=== PATIENT | male | born 1960 | race Caucasian/White ===

== ENCOUNTER 2025-08-20 07:37 | Emergency (ER) | payer SELFPAY ==
[2025-08-20 07:41] VITALS: BP 151/91
[2025-08-20] MEDS: PERCOCET 5/325 1 TABLET PO ×2 (07:49→10:05)
[2025-08-20] MEDS: TORADOL 30 MG IM (07:50)
--- NOTE | 2025-08-20 09:37 | ED.GENMED ---
History of Present Illness
General
Chief Complaint: Musculo-Skeletal Complaint
Source: patient
Exam Limitations: none
Time Seen by Provider: 08/20/25 07:51
Nursing documentation reviewed up to this point in time: agreed with
History of Present Illness
History of Present Illness:
65-year-old male past medical history of hypertension hyperlipidemia presenting to the emergency department after falling off a razor scooter at work falling directly onto his bent left forearm. Immediately felt pain to the area. Denies numbness
weakness denies any head trauma no neck pain no numbness or weakness.
Review of Systems
Review of Systems
Allergies reviewed?: Yes
All Other Systems: ROS reviewed and negative except as documented in HPI and ROS
Phy Exam
Physical Exam
Physical Exam:
GENERAL: Alert , in no apparent distress
EYE: pupils equal and reactive
NECK: Supple, no significant adenopathy.
ENT: o/p clr, mmm.
CARDIAC: Regular rate and rhythm .
LUNGS: Clear breath sounds bilaterally, no acute respiratory distress, no wheezes/rales/rhonchi
ABDOMEN: Soft, without focal tenderness, no r/g, no cvat
NEUROLOGICAL: Alert and oriented, no focal neuro deficits
SKIN: Warm and dry, skin intact.
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 No tenderness throughout the shoulder girdle
PSYCH: Normal and appropriate interaction.
Course
Orders/Labs/Results
Orders:
Orders
08/20/25 07:46
Ketorolac [Toradol] 30 mg IM NOW STA
Oxycodone/Acetaminophen [Percocet 5/325] 1 tablet PO NOW STA
08/20/25 07:53
Forearm, Left 2 View [CR Forearm - Left 2 View] Urgent
Comment:
Reason For Exam: pain injury
08/20/25 09:45
Ketorolac [Toradol] 15 mg IM NOW STA
Oxycodone/Acetaminophen [Percocet 5/325] 1 tablet PO NOW STA
Vital Signs
Initial and Last Documented VS:
Initial Vital Signs
Temp Pulse Resp BP Pulse Ox
98.0 F 63 16 151/91 99
08/20/25 07:41 08/20/25 07:41 08/20/25 07:41 08/20/25 07:41 08/20/25 07:41
Last Documented Vital Signs
Temp Pulse Resp BP Pulse Ox
98.0 F 63 16 151/91 99
08/20/25 07:41 08/20/25 07:41 08/20/25 07:41 08/20/25 07:41 08/20/25 09:43
Procedures
Splinting/Sling Placement
Left Arm:
Procedure completed by: Myself
Pre-splint extermity exam: neurovascular intact
Type of splint: posterior long arm
Splint material: fiberglass
Splint checked by provider?: Yes
Type of sling: sling fitted
Normal distal neurovascular exam?: Yes
MDM/Problems Addressed
MDM/Problems Addressed:
65-year-old male presenting to the emergency department today with concerns of left forearm pain after falling off a scooter. Patient found have a proximal ulnar fracture. Case discussed with orthopedics recommending splinting and close outpatient
follow-up.
*Pulse Oximetry
SaO2: 99
Oxygen Mode of Delivery: Room air
Patient hypoxic: no (99)
*Critical Care Note
Total Time (30-74mins, 75-104mins- exclusive of procedures): Not Applicable
ED Attending Note
-
Portions of this chart may have been created with voice recognition software.� Occasional wrong word or��sound alike� substitutions may have occurred due to the inherent limitations of voice recognition software.
Discharge Plan
Departure
Patient Disposition: Home (Routine Discharge)
Date of Disposition: 08/20/25
Time of Disposition: 11:40
Patient with high blood pressure during this ER visit?: No
Condition: Good
Covid-19: Not Applicable
Discharge Problem:
Fracture of proximal end of left ulna
Instructions: Elbow Fracture, Adult ED
Prescriptions:
New
oxycodone-acetaminophen [Percocet] 5-325 mg tablet
1 tab PO Q8H PRN (Reason: Pain) Qty: 7 0RF
Referrals:
Van Ayala DO [Family Provider, Family Practice]
Yevgeniy Corral MD [Active, Orthopedics] - Follow up in 5-7 days
Activity Restrictions/Additional Instructions:
You came to the emergency department today with concerns of an injury to your left forearm you are found to have a proximal ulnar fracture. Please wear the splint and follow-up closely with orthopedics. Return for any worsening, new or concerning
symptoms.
Interventions
Interventions:
*Risk Screen - Suicide Last Done: 08/20/25 07:41
*Neglect/Abuse Screening Last Done: 08/20/25 07:41
*ED- Fall Risk Assessment Last Done: 08/20/25 07:41
ED-Musculoskeletal Assessment Last Done: 08/20/25 07:41
Discharge Date and Time
Print Language: BHUTANESE
== END 2025-08-20 11:45 | disposition home or self-care (01) ==
LOC: EMR 07:37
PROVIDERS: EMERGENCY PHYSICIAN Emergency Medicine; FAMILY PHYSICIAN Family Medicine Sports Medicine
DX: S52.092A Other fracture of upper end of left ulna, initial encounter for closed fracture (principal); S52.122A Displaced fracture of head of left radius, initial encounter for closed fracture; V00.841A Fall from standing electric scooter, initial encounter; Y92.89 Other specified places as the place of occurrence of the external cause; Y99.0 Civilian activity done for income or pay; I10 Essential (primary) hypertension; E78.5 Hyperlipidemia, unspecified
CPT/HCPCS: 29105; 96372; 99284; 73090

== ENCOUNTER → 2025-08-21 15:12 | Outpatient (REF) | payer OTHER, SELFPAY ==
[2025-08-21 16:44] LABS: Hematocrit 45.8 % (39.0-52.0); Hemoglobin 16.2 g/dL (13.0-18.0); Mean Corp Hgb Conc. 35.4 g/dL (33.0-37.0); Mean Corpuscular Volume 99.1 fL (80.0-94.0); Nucleated Red Blood Cells % 0 % (-); Platelet Count 190 10^3/uL (130-400); Red Cell Dist. Width 11.8 % (11.5-14.5)
[2025-08-21 17:06] LABS: Blood Urea Nitrogen 10 mg/dl (9-20); Calcium 9.3 mg/dl (8.4-10.2); Carbon Dioxide 26 mmol/L (22-30); Chloride 99 mmol/L (98-107); Glucose 94 mg/dl (70-99); Potassium 4.3 mmol/L (3.5-5.1); Sodium 133 mmol/L (135-145); eGFR > 60.00
== END ==
LOC: REG 15:12
PROVIDERS: ATTENDING PHYSICIAN Orthopaedic Surgery
DX: Z01.818 Encounter for other preprocedural examination (principal)
CPT/HCPCS: 36415; 80048; 85025; 93005

== ENCOUNTER 2025-08-26 06:16 | Day surgery (SDC) | payer OTHER, SELFPAY ==
[2025-08-26] VITALS (13 sets, daily range): BP systolic 157–188; BP diastolic 78–115; BMI 21.8
[2025-08-26] MEDS: NORMOSOL-R/PLASMALYTE-A 1000 IV (10:25)
[2025-08-26] MEDS: CELEBREX 200 MG PO (10:37)
[2025-08-26] MEDS: TYLENOL 1000 MG PO (10:37)
[2025-08-26] MEDS: DILAUDID 0.5 MG IV ×2 (15:34→15:42)
[2025-08-26] MEDS: ROXICODONE 5 MG PO (17:01)
[2025-08-26] MEDS: TYLENOL 650 MG PO (17:01)
== END 2025-08-26 17:53 | disposition home or self-care (01) ==
LOC: SDS 06:16
PROVIDERS: ATTENDING PHYSICIAN Orthopaedic Surgery
DX: S52.202A Unspecified fracture of shaft of left ulna, initial encounter for closed fracture (principal); W19.XXXA Unspecified fall, initial encounter
CPT/HCPCS: 25545; C1713